=== PATIENT | female | born 2000 ===

== ENCOUNTER 2023-08-12 13:43 | Emergency (ER) | payer BC ==
[2023-08-12] MEDS: Acetaminophen 500 MG Tab PO ONE (14:46)
[2023-08-12 14:58] LABS: BILIRUBIN,URINE NEGATIVE (NEGATIVE); GLUCOSE,URINE NEGATIVE (NEGATIVE); KETONES,URINE 15 mg/dL (NEGATIVE); LEUKOCYTE ESTERASE,URINE NEGATIVE (NEGATIVE); NITRITE,URINE NEGATIVE (NEGATIVE); OCCULT BLOOD,URINE LARGE (NEGATIVE); PROTEIN,URINE TRACE mg/dL (NEGATIVE); UROBILINOGEN,URINE 0.2 EU/dL (<2.0)
[2023-08-12 15:09] LABS: APPEARANCE,URINE CLOUDY; COLOR,URINE DARK YELLOW
[2023-08-12 15:10] LABS: BACTERIA,URINE 1+ (NEGATIVE); EPITHELIAL CELLS,URINE FEW (NONE-FEW); RBC,URINE TOO NUMEROUS TO CT (0-2/HPF); WBC,URINE 0-2 (0-5/HPF)
== END 2023-08-12 15:58 | disposition home or self-care (01) ==
LOC: MW.ED 13:43
DX: O99.891 Other specified diseases and conditions complicating pregnancy (principal); M54.16 Radiculopathy, lumbar region; Z3A.19 19 weeks gestation of pregnancy
CPT/HCPCS: 81001; 99283; A9270